=== PATIENT | male | born 1955 | race African-American/Black ===

== ENCOUNTER 2017-08-19 11:41 | Emergency (ER) | payer MEDICARE, OTHER | END 2017-08-19 12:18 | disposition home or self-care (01) | LOC: E/R 11:41 | DX: R21 Rash and other nonspecific skin eruption (principal); I10 Essential (primary) hypertension | CPT/HCPCS: 99283 ==

== ENCOUNTER 2017-08-22 10:08 | Observation (INO) | payer MEDICARE, OTHER ==
[2017-08-22] MEDS: NITROGLYCERIN (SL) 0.4 MG TAB SL (11:45)
[2017-08-22] MEDS: NITROGLYCERIN 2% 1 GM OINT PKT TD (11:45)
[2017-08-22 11:46] LABS: ADD MAN DIFF? NO
[2017-08-22 11:47] LABS: WHITE BLOOD COUNT 8.9 10^3/ul (4.8-10.8)
[2017-08-22 11:47] LABS: BASOPHIL # 0.1 10^3/ul (0.0-0.1); BASOPHILS % 0.6 % (0.0-2.0); EOSINOPHILS # 0.2 10^3/ul (0.0-0.5); EOSINOPHILS % 2.7 % (0.0-7.0); HEMATOCRIT 32.1 % (42.0-52.0); HEMOGLOBIN 10.8 g/dl (14.0-18.0); MEAN CORPUSCULAR HEMOGLOBIN 30.3 pg (29.0-33.0); MEAN CORPUSCULAR HGB CONC 33.6 g/dl (32.0-37.0); MEAN CORPUSCULAR VOLUME 90.2 fl (82.0-101.0); MEAN PLATELET VOLUME 10.5 fl (7.4-10.4); MONOCYTE # 0.8 10^3/ul (0.3-0.9); MONOCYTES % 9.3 % (0.0-11.0); NEUTROPHIL # 5.8 10^3/ul (1.6-7.5); NEUTROPHILS % 65.1 % (39.0-77.0); PLATELET COUNT 179 10^3/UL (140-415); RED BLOOD COUNT 3.56 10^6/ul (4.70-6.10)
[2017-08-22 12:08] LABS: ANION GAP 15 (8-16); BLOOD UREA NITROGEN 32 mg/dl (7-20); CALCIUM 8.2 mg/dl (8.4-10.2); CARBON DIOXIDE 32 mmol/L (21-31); CHLORIDE 99 mmol/L (97-110); GLUCOSE 104 mg/dl (70-220); POTASSIUM 3.8 mmol/L (3.5-5.1); SODIUM 142 mmol/L (135-144)
[2017-08-22 12:20] LABS: TROPONIN-I 0.014 ng/ml (0.00-0.12)
[2017-08-22] MEDS ORDERED: ACETAMINOPHEN 325 MG TAB PO (13:30)
[2017-08-22] MEDS ORDERED: ONDANSETRON 4 MG INJ IV (13:30)
[2017-08-22] MEDS: CEFTRIAXONE 1 GM/50 ML (PMX) 50 ML IVPB (14:35)
[2017-08-22] MEDS: AZITHROMYCIN 500MG/NS (PMX) 250 ML IV (14:35)
[2017-08-22 19:07] LABS: CREATINE KINASE 210 IU/L (23-200)
[2017-08-22 19:16] LABS: CK INDEX 0.5; TROPONIN-I 0.015 ng/ml (0.00-0.12)
[2017-08-22 19:17] LABS: CK-MB 1.13 ng/ml (0.0-2.4)
== END 2017-08-22 21:30 | disposition home or self-care (01) ==
LOC: E/R 10:08 → MS4 13:03
DX: R07.89 Other chest pain (principal); B02.9 Zoster without complications; I12.0 Hypertensive chronic kidney disease with stage 5 chronic kidney disease or end stage renal disease; E11.22 Type 2 diabetes mellitus with diabetic chronic kidney disease; N18.6 End stage renal disease; Z99.2 Dependence on renal dialysis; E78.5 Hyperlipidemia, unspecified; N40.0 Benign prostatic hyperplasia without lower urinary tract symptoms; F31.9 Bipolar disorder, unspecified; F20.9 Schizophrenia, unspecified; Z88.8 Allergy status to other drugs, medicaments and biological substances
CPT/HCPCS: 36415; 71045; 80048; 82550; 82553; 84484; 85025; 87040; 93005; 96374; 96375; 99285-25; G0378

== ENCOUNTER 2017-10-19 08:04 | Emergency (ER) | payer MEDICARE, OTHER ==
[2017-10-19 10:48] LABS: ADD MAN DIFF? NO
[2017-10-19 10:50] LABS: BASOPHILS % 0.5 % (0.0-2.0); EOSINOPHILS # 0.2 10^3/ul (0.0-0.5); EOSINOPHILS % 2.3 % (0.0-7.0); HEMATOCRIT 31.7 % (42.0-52.0); HEMOGLOBIN 10.7 g/dl (14.0-18.0); LYMPHOCYTES % 23.3 % (15.0-51.0); MEAN CORPUSCULAR HEMOGLOBIN 30.7 pg (29.0-33.0); MEAN CORPUSCULAR HGB CONC 33.8 g/dl (32.0-37.0); MEAN CORPUSCULAR VOLUME 91.1 fl (82.0-101.0); MEAN PLATELET VOLUME 9.9 fl (7.4-10.4); MONOCYTE # 0.7 10^3/ul (0.3-0.9); MONOCYTES % 8.6 % (0.0-11.0); NEUTROPHIL # 5.6 10^3/ul (1.6-7.5); NEUTROPHILS % 64.8 % (39.0-77.0); PLATELET COUNT 196 10^3/UL (140-415); RED BLOOD COUNT 3.48 10^6/ul (4.70-6.10); RED CELL DISTRIBUTION WIDTH 16.1 % (11.5-14.5)
[2017-10-19 10:50] LABS: WHITE BLOOD COUNT 8.6 10^3/ul (4.8-10.8)
[2017-10-19 11:08] LABS: ANION GAP 25 (8-16); BLOOD UREA NITROGEN 68 mg/dl (7-20); CALCIUM 6.9 mg/dl (8.4-10.2); CARBON DIOXIDE 18 mmol/L (21-31); CHLORIDE 106 mmol/L (97-110); CREATININE 11.46 mg/dl (0.61-1.24); GLUCOSE 117 mg/dl (70-220); POTASSIUM 4.4 mmol/L (3.5-5.1); SODIUM 145 mmol/L (135-144)
[2017-10-19 11:20] LABS: TROPONIN-I 0.023 ng/ml (0.00-0.12)
== END 2017-10-19 12:19 | disposition home or self-care (01) ==
LOC: E/R 08:04
DX: I12.0 Hypertensive chronic kidney disease with stage 5 chronic kidney disease or end stage renal disease (principal); E11.9 Type 2 diabetes mellitus without complications; N18.6 End stage renal disease; D63.1 Anemia in chronic kidney disease; Z99.2 Dependence on renal dialysis
CPT/HCPCS: 71045; 80048; 84484; 85025; 93005; 99285-25

== ENCOUNTER 2018-12-09 13:33 | Emergency (ER) | payer SELFPAY, OTHER, MEDICARE | END 2018-12-09 16:28 | disposition left against medical advice (07) | LOC: FTE 13:33 | DX: Z53.21 Procedure and treatment not carried out due to patient leaving prior to being seen by health care provider (principal) ==

== ENCOUNTER 2019-01-28 06:29 | Emergency (ER) | payer MEDICARE, OTHER ==
[2019-01-28] MEDS: LIDOCAINE 1% (MPF) 5 ML VIAL INFIL (07:05)
== END 2019-01-28 08:21 | disposition home or self-care (01) ==
LOC: FTE 06:29
DX: L02.215 Cutaneous abscess of perineum (principal); I12.0 Hypertensive chronic kidney disease with stage 5 chronic kidney disease or end stage renal disease; N18.6 End stage renal disease; Z99.2 Dependence on renal dialysis
CPT/HCPCS: 46050; 99283-25